=== PATIENT | female | born 1950 | race Caucasian/White ===

== ENCOUNTER 2018-07-18 14:27 | Emergency (ER) | payer SELFPAY | END 2018-07-18 21:08 | disposition left against medical advice (07) | LOC: E/R 14:27 | DX: Z53.21 Procedure and treatment not carried out due to patient leaving prior to being seen by health care provider (principal) ==

== ENCOUNTER 2018-07-21 15:22 | Emergency (ER) | payer MEDICARE, BC | END 2018-07-21 21:39 | disposition home or self-care (01) | LOC: FTE 21:39 | DX: M79.602 Pain in left arm (principal) | CPT/HCPCS: 29125; 73090; 73130-LT; 93971; 99283-25 ==